=== PATIENT | female | born 1980 | race Caucasian/White ===

== ENCOUNTER 2020-08-21 11:05 | Inpatient (IN) | payer OTHER ==
[~2020-08-21] VITALS: Ht 170.2 cm; Wt 77.1 kg
[2020-08-21 11:05] VITALS: BP 117/75
[2020-08-21 12:02] LABS: HEMATOCRIT 42.5 % (37.0-47.0); HEMOGLOBIN 14.1 gm/dL (12.0-15.0); MCH 31.4 pg (26.0-34.0); MCHC 33.2 g/dL (28.0-37.0); MCV 94.5 fL (80.0-100.0); RBC 4.5 mil/uL (4.20-5.00); RDW 13.3 % (10.5-14.5); WBC 16.3 thou/uL (4.0-11.0)
[2020-08-21 12:07] LABS: ANION GAP 19 mmol/L (7-16); BUN 12 mg/dL (7-18); CALCIUM 9.5 mg/dL (8.5-10.1); CHLORIDE 100 mmol/L (98-107); CO2 18 mmol/L (21-32); CREATININE 0.7 mg/dL (0.6-1.0); GLUCOSE 107 mg/dL (74-106); SODIUM 137 mmol/L (136-145)
[2020-08-21 12:14] LABS: TROPONIN-I <0.06 ng/mL (<0.06)
[2020-08-21 12:29] LABS: URINE BILIRUBIN NEGATIVE (Negative); URINE BLOOD 1+ (Negative); URINE COLOR YELLOW; URINE GLUCOSE-RANDOM* NEGATIVE (Negative); URINE KETONES NEGATIVE (Negative); URINE NITRITE-REFLEX NEGATIVE (Negative); URINE PROTEIN (DIPSTICK) TRACE (Negative); URINE UROBILINOGEN 0.2 E.U./dl (0.2-1.0)
[2020-08-21 12:33] LABS: URINE CLARITY HAZY; URINE LEUKOCYTES-REFLEX 2+ (Negative)
[2020-08-21 12:42] LABS: CASTS None Seen /LPF (None Seen); MUCUS 0-3 Light strn/LPF (None Seen); SQUAMOUS 4-10 Moderate /LPF (0-3)
[2020-08-21 12:43] LABS: AMP/METHAMP POSITIVE (Negative); BACTERIA-REFLEX 1-9 Few /HPF (None Seen); BARBITURATES Negative (Negative); BENZODIAZEPINES Negative (Negative); COCAINE Negative (Negative); CRYSTALS None Seen /LPF (None Seen); METHADONE Negative (Negative); OPIATES POSITIVE (Negative); PCP Negative (Negative); URINE RBC 0-2 Rare /HPF (0-2); URINE WBC-REFLEX >25 Many /HPF (0-5); WBC CLUMPS Moderate (None Seen)
[2020-08-21 17:04] VITALS: BP 117/75
[2020-08-21 17:16] VITALS: BP 122/78
[2020-08-21 18:00] VITALS: BP 124/62
[2020-08-21 18:07] VITALS: BP 111/80
[2020-08-21 19:11] VITALS: BP 124/62
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
[2020-08-22 05:50] LABS: ABSOLUTE NEUTROPHILS 4.7 thou/uL (1.4-8.2); BASOPHILS 0.6 % (0.0-2.0); EOSINOPHILS 2.5 % (0.0-3.0); HEMATOCRIT 38.2 % (37.0-47.0); HEMOGLOBIN 13.1 gm/dL (12.0-15.0); LYMPHOCYTES 26.5 % (24.0-44.0); MCH 32.5 pg (26.0-34.0); MCHC 34.3 g/dL (28.0-37.0); MCV 94.8 fL (80.0-100.0); MONOCYTES 7.7 % (1.0-8.0); PLATELET COUNT 264 thou/uL (150-400); POLYS 62.7 % (36.0-66.0); RBC 4.03 mil/uL (4.20-5.00); RDW 13.5 % (10.5-14.5); WBC 7.5 thou/uL (4.0-11.0)
[2020-08-22 06:05] LABS: ALBUMIN 3.4 g/dL (3.4-5.0); CALCIUM 8.5 mg/dL (8.5-10.1); CREATININE 0.8 mg/dL (0.6-1.0); MAGNESIUM 1.9 mg/dL (1.8-2.4); PHOSPHORUS 3.4 mg/dL (2.6-4.7); POTASSIUM 3.7 mmol/L (3.5-5.1); TOTAL BILIRUBIN 1.1 mg/dL (0.2-1.0); TOTAL PROTEIN 6.9 g/dL (6.4-8.2)
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
[2020-08-22 07:34] VITALS: BP 111/66
[2020-08-22 15:37] VITALS: BP 161/78
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
[2020-08-22 19:36] VITALS: BP 149/55
[2020-08-22 21:00] VITALS: BP 149/55
--- NOTE | 2020-08-23 07:42 | EKG ---
[place] [address] [facility] [place] [address] ELECTROCARDIOGRAM REPORT Name: ORION CHURCHILL Room #: 461-P ADM IN M.R.#: [id number] Admission: 08/21/20 Attend Phys: Cheli Gayle MD Discharge: Date of : 82 Report #: [id number] [facility] ED Test Date: 2020-08-21 Test Time: 11:57:03 Pat Name: ORION CHURCHILL Department: Room: 461 Gender: F Client Support Associate: enrike : 1980 Requested By: Buzz Givens Order Number: [id number] : John Briggs Measurements Intervals Bryan Rate: 90 P: 86 OR: 139 QRS: 62 QRSD: 87 T: 66 QT: 391 QTc: 479 Interpretive Statements Sinus rhythm Biatrial enlargement No previous ECG available for comparison Electronically Signed On 08-23-2020 7:42:23 HULL DRAFTER by John Briggs [email or web address] <ELECTRONICALLY SIGNED> By: John Briggs MD, [facility] 08/23/20 0742 [id number] John Briggs MD, FACC /EPI
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
[2020-08-23] MEDS ORDERED: KEFLEX500 M1 PO (11:17)
[2020-08-23 11:32] VITALS: BP 149/55
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
--- NOTE | 2020-08-23 13:21 | NUR ---
PT A&OX4, VSS, DENIES PAIN. PATIENT ADAMANT ABOUT DISCHARGING. PATIENT FUSSY AND IRRITABLE. PATIENT REFUSED AM ANTIBIOTICS. IV REMOVED. NO SIGNS OF DISTRESS. ALL BELONINGS WITH PATIENT.
[2020-08-24 06:15] LABS: HEP B SURFACE Ab(ANTI-HBS Non Reactive (()); HEPATITIS B SURFACE AG Negative (Negative); HEPATITIS C VIRUS AB <0.1 (0.0-0.9)
== END 2020-08-23 12:30 | disposition home or self-care (01) | DRG 690 ==
LOC: ER 11:05 → EROBS 14:17 → 4W 17:16
PROVIDERS: Emergency Medicine; ADMIT Internal Medicine; ATTEND Internal Medicine
DX: N39.0 Urinary tract infection, site not specified (principal); M62.82 Rhabdomyolysis; E86.0 Dehydration; F17.210 Nicotine dependence, cigarettes, uncomplicated; F41.9 Anxiety disorder, unspecified; F15.90 Other stimulant use, unspecified, uncomplicated; Z88.0 Allergy status to penicillin; Z28.21 Immunization not carried out because of patient refusal
CPT/HCPCS: 10045

== ENCOUNTER 2021-09-23 00:36 | Emergency (ER) | payer OTHER ==
[~2021-09-23] VITALS: Ht 170.2 cm; Wt 74.8 kg
[~2021-09-23 00:36] MED LIST: KEFLEX500 M1 PO
[2021-09-23 00:37] VITALS: BP 105/56
[2021-09-23 01:51] LABS: URINE BILIRUBIN NEGATIVE (Negative); URINE BLOOD TRACE (Negative); URINE CLARITY CLEAR; URINE COLOR YELLOW; URINE GLUCOSE-RANDOM* NEGATIVE (Negative); URINE KETONES 1+ (Negative); URINE LEUKOCYTES-REFLEX 1+ (Negative); URINE NITRITE-REFLEX NEGATIVE (Negative); URINE PROTEIN (DIPSTICK) NEGATIVE (Negative); URINE SPECIFIC GRAVITY 1.025 (1.005-1.035); URINE UROBILINOGEN 0.2 E.U./dl (0.2-1.0)
[2021-09-23 02:01] LABS: CASTS None Seen /LPF (None Seen); CRYSTALS None Seen /LPF (None Seen); MUCUS 4-6 Moderate strn/LPF (None Seen); SQUAMOUS 0-3 Few /LPF (0-3); URINE RBC 1-2 Rare /HPF (NONE SEEN); URINE WBC-REFLEX 6-15 Few /HPF (0-5)
[2021-09-26] MEDS ORDERED: MACROBID 100 M100 M1 PO (08:29)
== END 2021-09-23 02:20 | disposition home or self-care (01) ==
LOC: ER 00:36
PROVIDERS: Emergency Medicine
DX: N39.0 Urinary tract infection, site not specified (principal); Z88.0 Allergy status to penicillin